=== PATIENT | female | born 1980 | race African-American/Black ===

== ENCOUNTER 2019-05-25 15:05 | Emergency (ER) | payer OTHER ==
[2019-05-25 15:31] VITALS: BP 162/97
--- NOTE | 2019-05-25 15:52 | UC ---
FLU HPI - HPI Summary HPI Summary: 39 yo female presents with flu-like symptoms. She tells me that over the last 2 weeks she has been having sore throat, sinus pain/pressure/congestion, and dry cough. 3 days ago she developed fatigue, body aches, and feeling feverish. She has been taking ibuprofen with little relief. She is eating, drinking, and tolerating po well but does hurt to swallow. She denies fever, SOB, chest pain, abdominal pain, n/v, rash. - History of Current Complaint Chief Complaint: UCRespiratory Stated Complaint: SORE THROAT Time Seen by Provider: 05/25/19 15:32 Hx Obtained From: Patient Hx Last Menstrual Period: a few days ago Onset/Duration: Gradual Onset Severity Currently: Moderate Severity Initially: Mild Pain Intensity: 7 Pain Scale Used: 0-10 Numeric - Allergy/Home Medications Allergies/Adverse Reactions: Allergies Allergy/AdvReac Type Severity Reaction Status Date / Time MS Acetaminophen Allergy Intermediate Hives Verified 04/18/13 08:44 [From Tylenol] acetaminophen Allergy Hives Verified 05/25/19 15:26 Home Medications: Home Medications Azithromycin TAB* [Zithromax TAB (Z-KATARINA) 250 mg #6 tabs] 2 tab PO .TODAY, THEN 1 DAILY #1 katarina 05/25/19 [Rx] Fluticasone-Salmeterol 100-50* [Advair Diskus 100-50*] 1 puff INH BID 05/25/19 [ History Confirmed 05/25/19] Montelukast Sodium TAB* [Singulair TAB*] 10 mg PO DAILY 05/25/19 [History Confirmed 05/25/19] Prednisone Inhaler 1 05/25/19 [History Confirmed 05/25/19] PMH/Surg Hx/FS Hx/Imm Hx Respiratory History: Asthma - Surgical History Surgical History: None - Family History Known Family History: Positive: Non-Contributory - Social History Occupation: Employed Full-time Lives: With Family Alcohol Use: Rare Substance Use Type: None Smoking Status (MU): Never Smoked Tobacco Review of Systems All Other Systems Reviewed And Are Negative: No Constitutional: Positive: Fatigue, Other - Body aches Skin: Positive: Negative Eyes: Positive: Negative ENT: Positive: Sore Throat, Nasal Discharge, Sinus Congestion Respiratory: Positive: Cough Cardiovascular: Positive: Negative Gastrointestinal: Positive: Negative Neurological/Mental Status: Positive: Negative Psychological: Positive: Negative Physical Exam - Summary Physical Exam Summary: GENERAL: NAD. WDWN. No pain distress. SKIN: No rashes, sores, lesions, or open wounds. HEENT: Head: AT/NC Eyes: EOM intact. Conjunctiva clear without inflammation or discharge. Ears: Hearing grossly normal. TMs intact, no bulging, erythema, or edema. Nose: Nasal mucosa pink and moist. NTTP maxillary and frontal sinus. Throat: Posterior oropharynx without exudates, erythema, or tonsillar enlargement. Uvula midline. NECK: Supple. Nontender. No lymphadenopathy. CHEST: CTAB. No r/r/w. No accessory muscle use. Breathing comfortably and in no distress. CV: RRR. Pulses intact. Cap refill <2seconds NEURO: Alert. PSYCH: Age appropriate behavior. Triage Information Reviewed: Yes Vital Signs: Initial Vital Signs Temp 98.2 F 05/25/19 15:27 Pulse 76 05/25/19 15:27 Resp 18 05/25/19 15:27 BP 162/97 05/25/19 15:27 Pulse Ox 100 05/25/19 15:27 Laboratory Tests 05/25/19 05/25/19 15:36 15:43 Influenza A (Rapid) Negative Influenza B (Rapid) Negative Group A Strep Rapid Negative Vital Signs Reviewed: Yes Flu Course/Dx - Course Course Of Treatment: POC strep and flu negative. Given length of symptoms with no improvement - will start anbx at this time. - Differential Dx/Diagnosis Provider Diagnosis: Pharyngitis Discharge ED - Sign-Out/Discharge Documenting (check all that apply): Patient Departure All imaging exams completed and their final reports reviewed: No Studies - Discharge Plan Condition: Stable Disposition: HOME Prescriptions: Azithromycin TAB* [Zithromax TAB (Z-KATARINA) 250 mg #6 tabs] 2 tab PO .TODAY, THEN 1 DAILY #1 katarina Patient Education Materials: Pharyngitis (ED) Referrals: Rachael De La Paz MD [Primary Care Provider] - Additional Instructions: STREP AND FLU TESTS NEGATIVE TODAY If you develop a fever, shortness of breath, chest pain, new or worsening symptoms - please call your PCP or go to the ED immediately. Your blood pressure was high at todays visit. Please see your primary provider within 4 weeks for recheck and re-evaluation. Drink plenty of fluids, especially if you are running any fever. Use salt water gargles several times a day. Take over the counter ibuprofen (Advil, Motrin) according to directions as needed for pain or fever. You may also use Chloraseptic spray or Cepacol lonzenges according to directions which contain a numbing medication and can provide some temporary relief from a sore throat. - Billing Disposition and Condition Condition: STABLE Disposition: Home
[2019-05-25 15:54] LABS: Influenza A Molecular Negative (Negative); Influenza B Molecular Negative (Negative)
== END 2019-05-25 16:00 | disposition home or self-care (01) ==
LOC: UCEAST 15:05
DX: J02.9 Acute pharyngitis, unspecified (principal); R05 Cough; R53.83 Other fatigue; R09.89 Other specified symptoms and signs involving the circulatory and respiratory systems; J45.909 Unspecified asthma, uncomplicated; Z79.51 Long term (current) use of inhaled steroids; Z88.6 Allergy status to analgesic agent
CPT/HCPCS: 87651; 99212; G0463